=== PATIENT | male | born 2000 | race Asian ===

== ENCOUNTER 2019-09-12 00:40 | Emergency (ER) | payer OTHER ==
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
[2019-09-12 02:07] VITALS: BP 130/84
== END 2019-09-12 02:05 | disposition home or self-care (01) ==
LOC: ED 00:40
DX: S86.812A Strain of other muscle(s) and tendon(s) at lower leg level, left leg, initial encounter (principal); M79.605 Pain in left leg; W22.8XXA Striking against or struck by other objects, initial encounter; Y92.9 Unspecified place or not applicable
CPT/HCPCS: 99282